=== PATIENT | female | born 1990 | race Asian ===

== ENCOUNTER 2016-10-01 08:16 | Emergency (ER) | payer OTHER ==
[~2016-10-01] VITALS: Ht 154.9 cm; Wt 44.9 kg
[2016-10-01 08:40] VITALS: BP 124/83; TEMP 98.7
== END 2016-10-01 08:44 | disposition home or self-care (01) ==
LOC: ED 08:16
DX: N75.0 Cyst of Bartholin's gland (principal)
CPT/HCPCS: 99281

== ENCOUNTER 2017-12-21 17:50 | Emergency (ER) | payer OTHER ==
[~2017-12-21] VITALS: Ht 154.9 cm; Wt 49.9 kg
[2017-12-21 17:55] VITALS: TEMP 99.6
[2017-12-21 19:57] LABS: PLATELET COUNT 318 K/uL (152-353)
[2017-12-21 20:07] LABS: POTASSIUM 3.6 mmol/L (3.6-5.2)
[2017-12-21 21:00] VITALS: BP 110/67
== END 2017-12-21 21:01 | disposition home or self-care (01) ==
LOC: ED 17:50
PROVIDERS: Internal Medicine
DX: R10.9 Unspecified abdominal pain (principal); R50.9 Fever, unspecified
CPT/HCPCS: 36415; 74022; 80053; 81000; 81025; 85027; 99283

== ENCOUNTER 2018-05-19 14:35 | Emergency (ER) | payer OTHER ==
[~2018-05-19] VITALS: Ht 154.9 cm; Wt 49.9 kg
[2018-05-19 14:35] VITALS: TEMP 98
[2018-05-19 15:12] LABS: PLATELET COUNT 357 K/uL (152-353)
[2018-05-19 15:35] LABS: POTASSIUM 3.5 mmol/L (3.6-5.2)
[2018-05-19 16:05] VITALS: BP 109/74
== END 2018-05-19 16:10 | disposition home or self-care (01) ==
LOC: ED 14:35
DX: R22.2 Localized swelling, mass and lump, trunk (principal); L90.5 Scar conditions and fibrosis of skin; L91.0 Hypertrophic scar
CPT/HCPCS: 36415; 80053; 81000; 85027; 99283

== ENCOUNTER 2018-09-24 05:06 | Emergency (ER) | payer OTHER ==
[~2018-09-24] VITALS: Ht 154.9 cm; Wt 49.9 kg
[2018-09-24 05:15] VITALS: BP 109/79; TEMP 98.4
== END 2018-09-24 05:46 | disposition home or self-care (01) ==
LOC: ED 05:06
DX: K08.89 Other specified disorders of teeth and supporting structures (principal)
CPT/HCPCS: 99281

== ENCOUNTER 2021-07-29 06:32 | Emergency (ER) | payer OTHER ==
[~2021-07-29] VITALS: Ht 154.9 cm; Wt 59.0 kg
[2021-07-29 07:23] LABS: PLATELET COUNT 257 K/uL (152-353)
[2021-07-29 07:30] LABS: POTASSIUM 3.6 mmol/L (3.6-5.2); SODIUM 135 mmol/L (136-145)
[2021-07-29 10:49] VITALS: BP 105/65; TEMP 99.5
== END 2021-07-29 10:50 | disposition home or self-care (01) ==
LOC: ED 06:32
PROVIDERS: Emergency Medicine Emergency Medical Services
DX: R10.2 Pelvic and perineal pain (principal); D25.9 Leiomyoma of uterus, unspecified
CPT/HCPCS: 80053; 80307; 81000; 81025; 83605; 84484; 85027; 85610; 87040; 93005; 96360; 96365; 96366; 96368; 96372; 99283; 99284; J1885; J2270; J2405; J2543; Q9963

== ENCOUNTER 2022-03-11 13:44 | Emergency (ER) | payer OTHER ==
[~2022-03-11] VITALS: Ht 154.9 cm; Wt 59.0 kg
[2022-03-11 13:55] VITALS: TEMP 98.4
[2022-03-11 14:31] LABS: PLATELET COUNT 278 K/uL (152-353)
[2022-03-11 14:41] LABS: POTASSIUM 3.2 mmol/L (3.6-5.2)
[2022-03-11 17:53] VITALS: BP 115/72
== END 2022-03-11 17:54 | disposition home or self-care (01) ==
LOC: ED 13:44
PROVIDERS: Emergency Medicine
DX: R19.09 Other intra-abdominal and pelvic swelling, mass and lump (principal)
CPT/HCPCS: 36415; 80053; 81002; 81025; 83690; 85027; 96360; 96374; 96375; 99284; J2270; J2405; Q9963